=== PATIENT | male | born 1965 | race Two or more races ===

== ENCOUNTER 2020-04-17 03:04 | Emergency (ER) | payer OTHER ==
[~2020-04-17] VITALS: Ht 182.9 cm; Wt 75.0 kg
[2020-04-17] MEDS ORDERED: MACR100 PO (03:07)
[2020-04-17 03:59] LABS: APPEARANCE,URINE CLEAR (CLEAR); BILIRUBIN,URINE NEGATIVE (NEGATIVE); GLUCOSE, URINE (UA) NEGATIVE (NEGATIVE); KETONES,URINE NEGATIVE (NEGATIVE); LEUKOCYTE ESTERASE ,URINE NEGATIVE (NEGATIVE); NITRATE,URINE NEGATIVE (NEGATIVE); OCCULT BLOOD,URINE MODERATE (NEGATIVE); PROTEIN,URINE NEGATIVE (NEGATIVE); UROBILINOGEN,URINE 0.2 mg/dL (<=1.0)
[2020-04-17 04:12] LABS: BACTERIA,URINE Few /HPF (None Seen); WBC,URINE 0-2 /HPF (0-5)
[2020-04-17 04:13] LABS: SQUAMOUS EPITHELIAL CELL,UR Few /LPF (None Seen)
[2020-04-17 04:29] VITALS: BP 110/60
== END 2020-04-17 04:51 | disposition home or self-care (01) ==
LOC: EMS 03:04
DX: R31.9 Hematuria, unspecified (principal); F17.210 Nicotine dependence, cigarettes, uncomplicated; F12.90 Cannabis use, unspecified, uncomplicated